=== PATIENT | female | born 2000 | race African-American/Black ===

== ENCOUNTER 2021-02-21 20:54 | Emergency (ER) | payer OTHER ==
[~2021-02-21] VITALS: Ht 175.3 cm; Wt 107.7 kg
[2021-02-21 22:18] LABS: BASO # 0.1 10^3/uL (0.0-0.2); BASO % 0.4 % (0.0-1.0); EOS # 0.3 10^3/uL (0.0-0.5); EOS % 1.9 % (0.0-3.0); HEMOGLOBIN 14.7 g/dl (12.0-15.5); LYMPH # 3.8 10^3/uL (1.5-5.0); MEAN CORPUSCULAR HGB CONC 33.4 g/dl (32.0-36.5); MEAN CORPUSCULAR VOLUME 89.8 fl (80.0-96.0); MONO % 7.3 % (2.0-8.0); NEUTROPHILS # 8.9 10^3/uL (1.5-8.5); NEUTROPHILS % 63.1 % (36.0-66.0); PLATELET COUNT, AUTOMATED 311 10^3/uL (150-450); WHITE BLOOD COUNT 14.1 10^3/uL (4.0-10.0)
[2021-02-21 22:56] LABS: BLOOD UREA NITROGEN 8 MG/DL (7-18); CALCIUM LEVEL 8.7 MG/DL (8.5-10.1); CARBON DIOXIDE LEVEL 31 MEQ/L (21-32); CHLORIDE LEVEL 107 MEQ/L (98-107); CREATININE FOR GFR 0.73 MG/DL (0.55-1.30); GLUCOSE, FASTING 91 MG/DL (70-100); HCG, SERUM QUANTITATIVE 27926 MIU/ML; SODIUM LEVEL 141 MEQ/L (136-145)
--- NOTE | 2021-02-22 00:27 | REPVR ---
PROCEDURE INFORMATION: Exam: US First Trimester, Transabdominal Exam date and time: 02/21/2021 12:02 AM Age: 20 years old Clinical indication: Lmp or gestational age (in weeks): 7w 5d; Other: Vaginal bleeding; ; Additional info: 8 weeks , vaginal bleeding TECHNIQUE: Imaging protocol: Real-time transabdominal obstetrical ultrasound of the maternal pelvis and a first trimester , less than 14 weeks 0 days, with image documentation. COMPARISON: No relevant prior studies available. FINDINGS: Intrauterine gestational sac with decidual reaction is present. No evidence of implantational hemorrhage. Yolk sac is present. pole is identified, measuring 14.1 mm in length. Doppler demonstrates heart rate of 153 beats/min. Ovaries are not visualized. No adnexal mass No abnormal volume of free pelvic fluid. IMPRESSION: Early intrauterine at 7 weeks 5 days estimated gestational age. No complication. Electronically signed by: Sean Reddy On 02/22/2021 00:27:00 AM
[2021-02-22 03:33] VITALS: BP 135/73
== END 2021-02-22 03:35 | disposition home or self-care (01) ==
LOC: M ED 20:54
DX: O20.0 Threatened abortion (principal); Z88.0 Allergy status to penicillin; Z3A.00 Weeks of gestation of pregnancy not specified

== ENCOUNTER 2021-03-21 14:48 | Emergency (ER) | payer OTHER ==
[~2021-03-21] VITALS: Ht 175.3 cm; Wt 107.9 kg
[2021-03-21] MEDS ORDERED: PREN200C PO (15:01)
[2021-03-21 15:50] LABS: BASO % 0.2 % (0.0-1.0); EOS # 0.2 10^3/uL (0.0-0.5); EOS % 1.2 % (0.0-3.0); HEMOGLOBIN 13.6 g/dl (12.0-15.5); LYMPH % 21.1 % (24.0-44.0); MEAN CORPUSCULAR HEMOGLOBIN 29.7 pg (27.0-33.0); MEAN CORPUSCULAR VOLUME 87.3 fl (80.0-96.0); MONO % 7.2 % (2.0-8.0); NEUTROPHILS % 69.9 % (36.0-66.0); PLATELET COUNT, AUTOMATED 311 10^3/uL (150-450); RED BLOOD COUNT 4.58 10^6/uL (4.00-5.40); WHITE BLOOD COUNT 14.3 10^3/uL (4.0-10.0)
[2021-03-21 16:36] LABS: BLOOD UREA NITROGEN 7 MG/DL (7-18); CALCIUM LEVEL 9.4 MG/DL (8.5-10.1); CARBON DIOXIDE LEVEL 27 MEQ/L (21-32); CHLORIDE LEVEL 107 MEQ/L (98-107); GLUCOSE, FASTING 79 MG/DL (70-100); HCG, SERUM QUANTITATIVE 57681 MIU/ML; POTASSIUM SERUM 4.4 MEQ/L (3.5-5.1); SODIUM LEVEL 138 MEQ/L (136-145)
[2021-03-21 17:12] LABS: APPEARANCE, URINE HAZY (CLEAR); BACTERIA, URINE AUTO NEGATIVE (NEGATIVE); BILIRUBIN, URINE AUTO NEGATIVE (NEGATIVE); BLOOD, URINE BLOOD 3+ (NEGATIVE); COLOR, URINE YELLOW (YELLOW); GLUCOSE, URINE (UA) AUTO NEGATIVE (NEGATIVE); KETONE, URINE AUTO 1+ mg/dL (NEGATIVE); LEUKOCYTE ESTERASE, URINE AUTO TRACE (NEGATIVE); MUCUS, URINE SMALL (NEGATIVE); NITRITE, URINE AUTO NEGATIVE (NEGATIVE); PROTEIN, URINE AUTO 1+ mg/dL (NEGATIVE); RBC, URINE AUTO 98 /HPF (0-3); SPECIFIC GRAVITY URINE AUTO 1.026 (1.002-1.035); SQUAMOUS EPITHELIAL CELL UR AU 5 /HPF (0-6); WBC, URINE AUTO 10 /HPF (0-3)
--- NOTE | 2021-03-21 17:13 | REP ---
INDICATION: vag bleeding, 11 wks preg G2PO COMPARISON: None. TECHNIQUE: Transabdominal 1st trimester obstetrical ultrasound with color Doppler evaluation. FINDINGS: Single live early intrauterine is appreciated. Gestational sac with pole identified. Woodworth-rump length of 4.2 cm corresponds to 11 weeks 0 days gestational age with estimated date of delivery 10/10/2021. heart rate equals 152 beats per minute. No gross abnormalities are identified. IMPRESSION: Single live early intrauterine at 11 weeks 0 days gestational age. Complete anatomical assessment should be performed and 19-20 weeks. <Electronically signed by Segundo Crisostomo > 03/21/21 2352
[2021-03-21 18:30] VITALS: BP 128/72
== END 2021-03-21 18:31 | disposition home or self-care (01) ==
LOC: M ED 14:48
DX: O20.9 Hemorrhage in early pregnancy, unspecified (principal); E28.2 Polycystic ovarian syndrome; Z88.0 Allergy status to penicillin; Z3A.11 11 weeks gestation of pregnancy; O99.281 Endocrine, nutritional and metabolic diseases complicating pregnancy, first trimester

== ENCOUNTER 2021-03-27 11:37 | Emergency (ER) | payer OTHER ==
[~2021-03-27] VITALS: Ht 175.3 cm; Wt 106.8 kg
[~2021-03-27 11:37] MED LIST: PREN200C PO
[2021-03-27 12:55] LABS: BASO % 0.2 % (0.0-1.0); EOS # 0.2 10^3/uL (0.0-0.5); EOS % 1.2 % (0.0-3.0); HEMATOCRIT 37.4 % (36.0-47.0); HEMOGLOBIN 12.5 g/dl (12.0-15.5); LYMPH # 3.1 10^3/uL (1.5-5.0); LYMPH % 24.7 % (24.0-44.0); MEAN CORPUSCULAR HEMOGLOBIN 29.4 pg (27.0-33.0); MEAN CORPUSCULAR HGB CONC 33.4 g/dl (32.0-36.5); MONO # 1.1 10^3/uL (0.0-0.8); MONO % 8.6 % (2.0-8.0); NEUTROPHILS # 8.2 10^3/uL (1.5-8.5); PLATELET COUNT, AUTOMATED 290 10^3/uL (150-450); RED BLOOD COUNT 4.25 10^6/uL (4.00-5.40); WHITE BLOOD COUNT 12.6 10^3/uL (4.0-10.0)
[2021-03-27 13:11] LABS: APPEARANCE, URINE CLEAR (CLEAR); BACTERIA, URINE AUTO NEGATIVE (NEGATIVE); BILIRUBIN, URINE AUTO NEGATIVE (NEGATIVE); BLOOD, URINE BLOOD 3+ (NEGATIVE); COLOR, URINE YELLOW (YELLOW); GLUCOSE, URINE (UA) AUTO NEGATIVE (NEGATIVE); KETONE, URINE AUTO NEGATIVE (NEGATIVE); LEUKOCYTE ESTERASE, URINE AUTO TRACE (NEGATIVE); MUCUS, URINE SMALL (NEGATIVE); NITRITE, URINE AUTO NEGATIVE (NEGATIVE); PROTEIN, URINE AUTO NEGATIVE (NEGATIVE); RBC, URINE AUTO 1 /HPF (0-3); SPECIFIC GRAVITY URINE AUTO 1.012 (1.002-1.035); SQUAMOUS EPITHELIAL CELL UR AU 2 /HPF (0-6); UROBILINOGEN, URINE AUTO 0.2 mg/dL (0.0-2.0); WBC, URINE AUTO 2 /HPF (0-3)
[2021-03-27 13:33] LABS: BLOOD UREA NITROGEN 6 MG/DL (7-18); CALCIUM LEVEL 8.9 MG/DL (8.5-10.1); CARBON DIOXIDE LEVEL 27 MEQ/L (21-32); CHLORIDE LEVEL 105 MEQ/L (98-107); CREATININE FOR GFR 0.56 MG/DL (0.55-1.30); GLUCOSE, FASTING 85 MG/DL (70-100); HCG, SERUM QUANTITATIVE 65064 MIU/ML; SODIUM LEVEL 137 MEQ/L (136-145)
--- NOTE | 2021-03-27 15:58 | REP ---
INDICATION: vag bleeding, 12 weeks. COMPARISON: 03/21/2021 TECHNIQUE: Transabdominal FINDINGS: Note is again made of a single living intrauterine gestation today having a mean crown-rump length measurement consistent with a 12 week 2 day gestational age. Based on that the estimated date of delivery is 10/07/2021. Doppler interrogation of the heart shows a heart rate of 165 beats per minute. Seen adjacent to the gestational sac there is a 2.8 x 0.6 x 2.5 cm sized area of decreased echoes. This represents a change from the prior exam. IMPRESSION: Single living intrauterine gestation as described above. Area of decreased echoes seen in the subchorionic region, as described above, consistent with a small subchorionic hemorrhage. Follow-up is suggested. <Electronically signed by Rubin Perez > 03/27/21 [id number]
[2021-03-27 17:07] VITALS: BP 137/77
== END 2021-03-27 17:08 | disposition home or self-care (01) ==
LOC: M ED 11:37
DX: O20.0 Threatened abortion (principal); E28.2 Polycystic ovarian syndrome; Z88.0 Allergy status to penicillin; Z3A.12 12 weeks gestation of pregnancy; O99.281 Endocrine, nutritional and metabolic diseases complicating pregnancy, first trimester

== ENCOUNTER → 2021-06-18 | Outpatient (CLI) | payer OTHER ==
--- NOTE | 2021-06-18 16:57 | REP ---
INDICATION: OBS F/U PREVIA /ANATOMY COMPARISON: 06/02/2021 TECHNIQUE: Transabdominal obstetrical ultrasound with color Doppler evaluation. FINDINGS: Examination demonstrates a single live intrauterine in cephalic presentation. motion is identified by technologist. Placenta is noted anterior and grade 0 without evidence for placenta previa or abruption. Cervix measures 3.0 cm in length and appears closed. Amniotic fluid volume is decreased and suggests oligohydramnios. Selected gestational age: 24 weeks 3 days with MARIBEL 10/05/2021. Gestational age by current measurements 21 weeks 1 day with MARIBEL 10/28/2021. FHR equals 142 beats per minute. Estimated weight 364 grams (less than 10thpercentile). Limited anatomical assessment demonstrates normal cavum septum pellucidum, falx, facial profile, lungs, diaphragm, stomach, kidneys/bladder, abdominal wall, extremities and three-vessel cord. IMPRESSION: Single live intrauterine in cephalic presentation. Oligohydramnios is suggested with KHANG equal 6 cm Interval growth is lower limits of normal range. Close clinical observation is recommended. <Electronically signed by Segundo Crisostomo > 06/18/21 1371
== END ==
LOC: M RAD 15:30
PROVIDERS: ATTEND Obstetrics & Gynecology
DX: Z36.2 Encounter for other antenatal screening follow-up (principal); Z3A.21 21 weeks gestation of pregnancy

== ENCOUNTER 2023-09-07 03:20 | Emergency (ER) | payer BC, OTHER, SELFPAY ==
[2023-09-07] MEDS ORDERED: NS 1,000 ML IV ONE (03:30)
[2023-09-07 03:35] VITALS: TEMP 98.6
[2023-09-07 04:21] LABS: VENOUS O2 SATURATION 59.4 % (60.0-80.0); VENOUS PARTIAL PRESSURE CO2 54.2 mmHg (38.0-50.0); VENOUS PH 7.331 UNITS (7.330-7.430); VENOUS STANDARD HCO3 24.4 MMOL/L; VENOUS TOTAL CO2 29.7 MMOL/L (24.0-28.0)
[2023-09-07 04:24] LABS: BASO % 0.4 % (0.0-1.0); EOS # 0.4 10^3/uL (0.0-0.5); EOS % 3.2 % (0.0-3.0); HEMATOCRIT 39.9 % (36.0-47.0); HEMOGLOBIN 13.2 g/dl (12.0-15.5); LYMPH # 2.6 10^3/uL (1.5-5.0); LYMPH % 23.2 % (24.0-44.0); MEAN CORPUSCULAR HEMOGLOBIN 29.9 pg (27.0-33.0); MEAN CORPUSCULAR HGB CONC 33.1 g/dl (32.0-36.5); MEAN CORPUSCULAR VOLUME 90.3 fl (80.0-96.0); MONO % 8.8 % (2.0-8.0); NEUTROPHILS # 7.2 10^3/uL (1.5-8.5); NEUTROPHILS % 64.1 % (36.0-66.0); PLATELET COUNT, AUTOMATED 279 10^3/uL (150-450); RED BLOOD COUNT 4.42 10^6/uL (4.00-5.40); WHITE BLOOD COUNT 11.2 10^3/uL (4.0-10.0)
[2023-09-07 04:55] LABS: CPK CREATINE PHOSPHOKINASE 72 U/L (34-145)
[2023-09-07 04:56] LABS: BLOOD UREA NITROGEN 11 MG/DL (9-23); CALCIUM LEVEL 9.1 MG/DL (8.5-10.1); CARBON DIOXIDE LEVEL 29 MMOL/L (20-31); CHLORIDE LEVEL 102 MMOL/L (98-107); CK-MB VALUE MASS < 1.0 NG/ML (<3.6); CREATININE FOR GFR 0.71 MG/DL (0.55-1.30); GLOMERULAR FILTRATION RATE > 60.0 (>60); GLUCOSE, FASTING 87 MG/DL (60-100); MB/CK RELATIVE INDEX 1.38 (< OR =4); POTASSIUM SERUM 3.9 MMOL/L (3.5-5.1); SODIUM LEVEL 138 MMOL/L (136-145)
[2023-09-07 04:58] LABS: FREE T4 1.29 NG/DL (0.89-1.76); THYROID STIMULATING HORMONE 4.504 uIU/ML (0.55-4.78)
[2023-09-07 04:59] LABS: RSV AMPLIFICATION NEGATIVE (NEGATIVE)
[2023-09-07 05:11] LABS: HCG, SERUM QUALITATIVE NEGATIVE (NEGATIVE)
[2023-09-07] MEDS ORDERED: ISOVUE-370 76% 100ML VIAL As Ordered ONE (05:15)
[2023-09-07 07:26] VITALS: BP 127/73; O2SAT 100
== END 2023-09-07 07:32 | disposition home or self-care (01) ==
LOC: M ED 03:20
DX: R55 Syncope and collapse (principal); F17.290 Nicotine dependence, other tobacco product, uncomplicated; R00.1 Bradycardia, unspecified
CPT/HCPCS: 70450; 71275; 80048; 81001; 82550; 82553; 82803; 84439; 84443; 84484; 84703; 85025; 85379; 87631; 93005; 93041; 94760; 96374; 99285; Q9967

== ENCOUNTER 2025-01-13 19:14 | Emergency (ER) | payer OTHER ==
[~2025-01-13] VITALS: Ht 175.3 cm; Wt 91.5 kg
[2025-01-13] MEDS ORDERED: HYDR-3363 PO (20:35)
[2025-01-13 20:47] VITALS: BP 125/78; TEMP 98; O2SAT 100
== END 2025-01-13 20:48 | disposition home or self-care (01) ==
LOC: M ED 19:14
DX: F41.9 Anxiety disorder, unspecified (principal); E28.2 Polycystic ovarian syndrome; Z88.0 Allergy status to penicillin; Z79.810 Long term (current) use of selective estrogen receptor modulators (SERMs); Z79.899 Other long term (current) drug therapy